=== PATIENT | female | born 1975 | race Caucasian/White ===

== ENCOUNTER → 2023-10-11 | Outpatient (CLI) | payer OTHER ==
[~2023-10-11] MED LIST: CEPHALEXIN500 M1 PO; IBU600 MG PO; MOTRIN 600600 MG/TAB PO; NORCO 325 MG-51 TAB PO; PEPCID AC 10MG10 MG PO; PERCOCET 325 MG1 TA2 PO; PRENATAL MVI PO; ZANTAC 150MG T150 MG PO; ZOFRAN ODT4 MG PO
== END ==
LOC: MC.RAD 15:30
DX: Z12.31 Encounter for screening mammogram for malignant neoplasm of breast (principal)